=== PATIENT | male | born 1990 | race African-American/Black ===

== ENCOUNTER 2019-03-25 15:26 | Emergency (ER) | payer SELFPAY ==
[2019-03-25 15:58] LABS: ABSOLUTE BASOPHILS # (AUTO) 0.1 10^3/uL (0.0-0.2); ABSOLUTE EOSINOPHILS # (AUTO) 0.1 10^3/uL (0.0-0.6); ABSOLUTE LYMPHOCYTES (AUTO) 2.4 10^3/uL (0.5-4.7); ABSOLUTE NEUT (AUTO) 6.9 10^3/uL (1.7-8.2); BASOPHILS % (AUTO) 0.5 % (0-2); EOSINOPHILS % (AUTO) 1.3 % (0-6); LYMPHOCYTES % (AUTO) 22.5 % (13-45); MEAN CORPUSCULAR HEMOGLOBIN 30.7 pg (27.0-33.4); MEAN CORPUSCULAR VOLUME 90 fl (80-97); MONOCYTES % (AUTO) 9.9 % (3-13); PLATELET COUNT 286 10^3/uL (150-450); RED BLOOD COUNT 4.86 10^6/uL (4.35-5.55); RED CELL DISTRIBUTION WIDTH 13.6 % (11.5-14.0); SEGMENTED NEUTROPHILS % (AUTO) 65.8 % (42-78); TOTAL CELLS COUNTED % (AUTO) 100 %; WHITE BLOOD COUNT 10.5 10^3/uL (4.0-10.5)
[2019-03-25 16:19] LABS: ACETAMINOPHEN < 10 ug/mL (10-30); ALANINE AMINOTRANSFERASE 23 U/L (21-72); ALBUMIN 4.9 g/dL (3.5-5.0); ALCOHOL < 10 mg/dL (NONE DETECTED); ALKALINE PHOSPHATASE 110 U/L (38-126); ANION GAP 11 (5-19); ASPARTATE AMINO TRANSFERASE 26 U/L (17-59); BILIRUBIN,DIRECT 0.4 mg/dL (0.0-0.4); BILIRUBIN,TOTAL 1.3 mg/dL (0.2-1.3); BLOOD UREA NITROGEN 16 mg/dL (7-20); CARBON DIOXIDE 24 mmol/L (22-30); CHLORIDE 107 mmol/L (98-107); GLUCOSE 108 mg/dL (75-110); POTASSIUM 3.8 mmol/L (3.6-5.0); SALICYLATE < 1.0 mg/dL (2.0-20.0); TOTAL PROTEIN 8.5 g/dL (6.3-8.2)
[2019-03-25] MEDS ORDERED: DIPHENHYDRAMINE HCL 50 MG/ML VIAL IM ONE (16:23)
[2019-03-25] MEDS ORDERED: CHLORPROMAZINE HCL INJ 25 MG/1 ML AMPULE IM ONE (16:23)
[2019-03-25] MEDS ORDERED: LORAZEPAM INJ 2 MG/1 ML VIAL IM ONE (16:24)
[2019-03-25] MEDS: CHLORPROMAZINE HCL 50 MG TABLET PO SCH (16:48)
--- NOTE | 2019-03-25 17:21 | PSYCHOLOGICAL NOTE ---
Psych Note - Psych Note Date seen by psych provider: 03/25/19 Time seen by psych provider: 15:35 Psych Note: Medication recommendations per [facility]'s contracted psychiatrist Dr. Austin COSTELLO are as follows Thorazine 50 mg every 8 hours Cogentin 1 mg twice daily Impression\plan: Patient is recommended for continued IVC. Patient presents with very labile affect with concerns aggressive behaviors. Medication recommendations have been provided. Dr. Dejesus was consulted and care management of this patient; attending physicians in agreement with recommendations and disposition.
[2019-03-25] MEDS: BENZTROPINE MESYLATE 1 MG TABLET PO SCH (18:43)
--- NOTE | 2019-03-25 19:35 | EKG REPORT ---
SEVERITY:- NORMAL ECG - SINUS RHYTHM : Confirmed by: Iris Suarez MD 25-Mar-2019 19:34:35
--- NOTE | 2019-03-25 20:31 | ER Document Report ---
ED Psych Disorder / Suicide - General TRAVEL OUTSIDE OF THE [place] IN LAST 30 DAYS: No <CORINA VERGARA - Last Filed: 03/25/19 20:26> <KAILASH PAREDES - Last Filed: 03/30/19 08:34> <PASCUALBRYN - Last Filed: 03/30/19 15:48> - General Chief Complaint: Psych Problem Stated Complaint: PSYCH EVAL Time Seen by Provider: 03/25/19 16:22 Primary Care Provider: [facility] [Outside] - Follow up as needed Notes: Patient was brought in by law enforcement with IVC papers because the patient is threatening to kill others including law enforcement and government officials. 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 History of indecent exposures (CORINA VERGARA) - Related Data Allergies/Adverse Reactions: No Known Allergies Allergy (Verified 03/29/19 21:34) Past Medical History - Social History Smoking Status: Unknown if Ever Smoked Family History: Reviewed & Not Pertinent - Unable to review with patient, but not felt to be significant Patient has suicidal ideation: No - Patient denies Patient has homicidal ideation: Yes - Per petition, patient denies Psychiatric Medical History: Reports: Hx Bipolar Disorder <CORINA VERGARA - Last Filed: 03/25/19 20:26> Review of Systems - Review of Systems -: Yes ROS unobtainable due to patient's medical condition - Uncooperative and unreliable information provided. <CORINA VERGARA - Last Filed: 03/25/19 20:26> Physical Exam - Vital signs Interpretation: Normal <CORINA VERGARA - Last Filed: 03/25/19 20:26> - Vital signs Vitals: Temp Pulse BP Pulse Ox 98.3 F 116 H 113/71 99 03/25/19 15:37 03/25/19 15:37 03/25/19 15:37 03/25/19 15:37 Notes: Vital signs are all normal. PHYSICAL EXAMINATION: GENERAL: Well-appearing, no acute distress. HEAD: Atraumatic, normocephalic. NECK: Normal range of motion, supple. LUNGS: Breath sounds clear and equal bilaterally. HEART: Regular rate and rhythm without murmurs heard. ABDOMEN: Soft, nontender. No guarding or rebound or masses felt. Neuro: Does not answer very many questions. History obtained primarily from the IVC paperwork. (CORINA VERGARA) Course - Laboratory Result Diagrams: 03/25/19 15:45 03/25/19 15:45 - EKG Interpretation by Me EKG shows normal: Sinus rhythm Rate: Normal Rhythm: NSR <CORINA VERGARA - Last Filed: 03/25/19 20:26> - Laboratory Result Diagrams: 03/25/19 15:45 03/25/19 15:45 <KAILASH PAREDES - Last Filed: 03/30/19 08:34> - Laboratory Result Diagrams: 03/25/19 15:45 03/25/19 15:45 <BRYN PASCUAL - Last Filed: 03/30/19 15:48> - Re-evaluation Re-evalutation: 03/25/19 20:30 Patient has been seen by mental health and sedation medications have been ordered. (CORINA VERGARA) - Vital Signs Vital signs: Temp Pulse Resp BP Pulse Ox 97.7 F 74 18 133/62 H 100 03/30/19 12:00 03/30/19 12:00 03/30/19 12:00 03/30/19 12:00 03/30/19 12:00 - Laboratory Laboratory results interpreted by me: 03/25/19 03/26/19 15:45 05:30 Total Protein 8.5 H Urine Protein 30 H Urine Ketones TRACE H Urine Bilirubin SMALL H Urine Urobilinogen 4.0 H Urine Ascorbic Acid 40 H Salicylates < 1.0 L Acetaminophen < 10 L - EKG Interpretation by Me Additional EKG results interpreted by me: 03/25/19 20:31 EKG is normal. (CORINA VERGARA) Discharge <CORINA VERGARA - Last Filed: 03/25/19 20:26> <KAILASH PAREDES - Last Filed: 03/30/19 08:34> <BRYN PASCUAL - Last Filed: 03/30/19 15:48> - Discharge Clinical Impression: Schizoaffective disorder, bipolar type Clinical Impression: (Ruled Out): Agitated depression Condition: Stable Disposition: HOME, SELF-CARE Additional Instructions: You have been evaluated both medical and behavioral health teams and have been deemed appropriate for discharge. You have recieved a Haldol Decanoate 100mg shot on 03/29/2019; this shot lasts 3-4 weeks. Please provide this information to your outpatient mental health provider. You have been provided medication prescriptions: Zyprexa 5 mg twice daily Depakote 500 mg twice daily Cogentin 1 mg twice daily Please follow up with outpatient mental health in 3-5 days for your continued mental health services; you have been provided a resource list of local providers if you chose to stay in the local area. AT ANY TIME, IF YOUR SYMPTOMS CHANGE SIGNIFICANTLY OR WORSEN OR YOU DEVELOP NEW SYMPTOMS, RETURN TO THE EMERGENCY DEPARTMENT IMMEDIATELY FOR RE-EVALUATION. Referrals: [facility] [Outside] - Follow up as needed
[2019-03-26] MEDS: CHLORPROMAZINE HCL 50 MG TABLET PO SCH ×5 (00:05→21:21)
[2019-03-26] MEDS ORDERED: CHLORPROMAZINE HCL INJ 25 MG/1 ML AMPULE IM ONE (05:07)
[2019-03-26] MEDS ORDERED: DIPHENHYDRAMINE HCL 50 MG/ML VIAL IM ONE (05:07)
[2019-03-26 05:57] LABS: APPEARANCE,URINE SLIGHTLY-CLOUDY; BILIRUBIN,URINE SMALL (NEGATIVE); COLOR,URINE AMBER; GLUCOSE, URINE NEGATIVE (NEGATIVE); KETONES,URINE TRACE mg/dL (NEGATIVE); LEUKOCYTE ESTERASE,URINE NEGATIVE (NEGATIVE); NITRITE,URINE NEGATIVE (NEGATIVE); PROTEIN,URINE 30 mg/dL (NEGATIVE)
[2019-03-26 06:15] LABS: URINE AMPHETAMINES SCREEN NEGATIVE; URINE BARBITURATES SCREEN NEGATIVE; URINE BENZODIAZEPINES SCREEN NEGATIVE; URINE COCAINE SCREEN NEGATIVE; URINE MARIJUANA (THC) SCREEN NEGATIVE; URINE METHADONE SCREEN NEGATIVE; URINE PHENCYCLIDINE SCREEN NEGATIVE
--- NOTE | 2019-03-26 09:35 | ER Document Report ---
Doctor's Note Notes: 03/26/19 09:34 Laboratory 03/25/19 03/25/19 03/26/19 15:45 15:45 05:30 WBC 10.5 RBC 4.86 Hgb 15.0 Hct 44.0 MCV 90 MCH 30.7 MCHC 34.0 RDW 13.6 Plt Count 286 Seg Neutrophils % 65.8 Lymphocytes % 22.5 Monocytes % 9.9 Eosinophils % 1.3 Basophils % 0.5 Absolute Neutrophils 6.9 Absolute Lymphocytes 2.4 Absolute Monocytes 1.0 Absolute Eosinophils 0.1 Absolute Basophils 0.1 Sodium 142.0 Potassium 3.8 Chloride 107 Carbon Dioxide 24 Anion Gap 11 BUN 16 Creatinine 1.15 Est GFR ( Amer) > 60 Est GFR (Non-Af Amer) > 60 Glucose 108 Calcium 10.0 Total Bilirubin 1.3 Direct Bilirubin 0.4 Neonat Total Bilirubin Not Reportable Neonat Direct Bilirubin Not Reportable Neonat Indirect Bili Not Reportable AST 26 ALT 23 Alkaline Phosphatase 110 Total Protein 8.5 H Albumin 4.9 Urine Color Urine Appearance Urine pH Ur Specific [place] Urine Protein Urine Glucose (UA) Urine Ketones Urine Blood Urine Nitrite Urine Bilirubin Urine Urobilinogen Ur Leukocyte Esterase Urine WBC (Auto) Urine RBC (Auto) Urine Mucus (Auto) Urine Ascorbic Acid Salicylates < 1.0 L Urine Opiates Screen NEGATIVE Urine Methadone Screen NEGATIVE Acetaminophen < 10 L Ur Barbiturates Screen NEGATIVE Ur Phencyclidine Scrn NEGATIVE Ur Amphetamines Screen NEGATIVE U Benzodiazepines Scrn NEGATIVE Urine Cocaine Screen NEGATIVE U Marijuana (THC) Screen NEGATIVE Serum Alcohol < 10 03/26/19 05:30 WBC RBC Hgb Hct MCV MCH MCHC RDW Plt Count Seg Neutrophils % Lymphocytes % Monocytes % Eosinophils % Basophils % Absolute Neutrophils Absolute Lymphocytes Absolute Monocytes Absolute Eosinophils Absolute Basophils Sodium Potassium Chloride Carbon Dioxide Anion Gap BUN Creatinine Est GFR ( Amer) Est GFR (Non-Af Amer) Glucose Calcium Total Bilirubin Direct Bilirubin Neonat Total Bilirubin Neonat Direct Bilirubin Neonat Indirect Bili AST ALT Alkaline Phosphatase Total Protein Albumin Urine Color MIGUEL Urine Appearance SLIGHTLY-CLOUDY Urine pH 5.0 Ur Specific [place] 1.040 Urine Protein 30 H Urine Glucose (UA) NEGATIVE Urine Ketones TRACE H Urine Blood NEGATIVE Urine Nitrite NEGATIVE Urine Bilirubin SMALL H Urine Urobilinogen 4.0 H Ur Leukocyte Esterase NEGATIVE Urine WBC (Auto) 3 Urine RBC (Auto) 1 Urine Mucus (Auto) MANY Urine Ascorbic Acid 40 H Salicylates Urine Opiates Screen Urine Methadone Screen Acetaminophen Ur Barbiturates Screen Ur Phencyclidine Scrn Ur Amphetamines Screen U Benzodiazepines Scrn Urine Cocaine Screen U Marijuana (THC) Screen Serum Alcohol As the rounding physician this AM, I assessed the patient's labs, vitals, and records. No concerning findings this morning. Patient denies any acute complaints. Patient is cleared for disposition by psychiatry 03/26/19 17:00 03/26/19 17:01 Medication recommendations per [facility]'s contracted psychiatrist Dr. Austin COSTELLO are as follows Thorazine 50 mg every 8 hours Cogentin 1 mg twice daily Impression\plan: Patient is recommended for continued IVC. Patient continues to present with very labile affect with concerns aggressive behaviors. Medication recommendations have been provided. Dr. Dejesus was consulted and care management of this patient; attending physicians in agreement with recomme ndations and disposition. 03/26/19 17:01 PHYSICAL EXAMINATION: GENERAL: Well-appearing, well-nourished and in no acute distress. HEAD: Atraumatic, normocephalic. EYES: Pupils equal round extraocular movements intact, conjunctiva are normal. ENT: Nares patent NECK: Normal range of motion LUNGS: No respiratory distress Musculoskeletal: Normal range of motion NEUROLOGICAL: Normal speech, normal gait. PSYCH: Normal mood, normal affect. SKIN: Warm, Dry, normal turgor, no rashes or lesions noted.
[2019-03-26] MEDS: BENZTROPINE MESYLATE 1 MG TABLET PO SCH (15:20)
--- NOTE | 2019-03-26 16:15 | PSYCHOLOGICAL NOTE ---
Psych Note - Psych Note Date seen by psych provider: 03/26/19 Time seen by psych provider: 08:00 - 0815 Psych Note: Reason for Consult: IVC Patient was brought in by law enforcement with IVC papers because the patient is threatening to kill others including law enforcement and government officials. 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 History of indecent exposure and communicating threats. Patient continues to present Manic with liable mood. [facility] staff report the patient has not slept and continues to not follow directions (ie leaving his room, taking 5-6 showers a day, attempting to talk with staff and patients). Patient is noted to engage in conversation; however, demonstrates odd affect with unprovoked aggressive posturing that is not congruent with his conversational tone. Diagnosis: Schizoaffective by History per patient Medication recommendations per [facility]'s contracted psychiatrist Dr. Austin COSTELLO are as follows Thorazine 50 mg every 8 hours Cogentin 1 mg twice daily Impression\plan: Patient is recommended for continued IVC. Patient continues to present with very labile affect with concerns aggressive behaviors. Medication recommendations have been provided. Dr. Dejesus was consulted and care management of this patient; attending physicians in agreement with recommendations and disposition.
[2019-03-26] MEDS ORDERED: HALOPERIDOL LACTATE INJ 5 MG/1 ML VIAL IM ONE (19:19)
[2019-03-27] MEDS: CHLORPROMAZINE HCL 50 MG TABLET PO SCH ×2 (03:06→09:40)
[2019-03-27] MEDS ORDERED: LORAZEPAM INJ 2 MG/1 ML VIAL IM ONE (03:50)
--- NOTE | 2019-03-27 09:23 | ER Document Report ---
Doctor's Note Notes: 03/27/19 09:23 28-year-old male with homicidal ideations. Patient has been placed on medications. Awaiting psychiatric transport/repeat assessment. Patient is calm and cooperative. Labs and vital signs as recorded.
[2019-03-27] MEDS: BENZTROPINE MESYLATE 1 MG TABLET PO SCH ×2 (09:41→17:46)
[2019-03-27] MEDS: OLANZAPINE INJ/PF 10 MG SDV IM SCH ×2 (13:49→17:45)
--- NOTE | 2019-03-27 16:23 | PSYCHOLOGICAL NOTE ---
Psych Note - Psych Note Date seen by psych provider: 03/27/19 Time seen by psych provider: 08:00 Psych Note: Reason for Consult: IVC Patient was brought in by law enforcement with IVC papers because the patient is threatening to kill others including law enforcement and government officials. 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 History of indecent exposure and communicating threats. Patient continues to present Manic with liable mood. Little improvement in affect; however, patient is no longer demonstrating pressured speech. Diagnosis: Schizoaffective by History per patient Updated Medication recommendations per [facility]'s contracted psychiatrist Dr. Austin COSTELLO are as follows Please add Zyprexa 5mg twice daily Please change Thorazine 50 mg to every 6 hours as needed continue Cogentin 1 mg twice daily Impression\plan: Patient is recommended for continued IVC. Patient continues to present with very labile affect. He is unable to control his impulses and needs consent redirection. Updated Medication recommendations have been provided. Dr. Dejesus was consulted and care management of this patient; attending physicians in agreement with recommendations and disposition.
[2019-03-28] MEDS: CHLORPROMAZINE HCL INJ 25 MG/1 ML AMPULE IM PRN ×2 (00:21→16:43)
--- NOTE | 2019-03-28 09:55 | PSYCHOLOGICAL NOTE ---
Psych Note - Psych Note Date seen by psych provider: 03/28/19 Psych Note: Presenting Problem: LE involvement after patient was making [place] threats to LE, Government officials and businesses. He reported a Hx of Schizoaffective, Bipolar and Nancy. Medications were Seroquel, Zyprexa, GBP, Activist. He admitted he stopped taking his medications and has been hospitalized many times in [place]. He stated he came to [place] for work, had been staying at local hotels/motels and most recently the local homeless ch[facility]. He talked about being arrested or LE being involved with him on numerous occasions. He stated he has court in July. Attending nurse stated he talks better today than he has the past 2 days. Mother, Jessa Palumbo ([phone]) called to the ED after reaching out to local LE since she had not heard from him in 3 days, they (mother and father) reached out to help, he always wants to do things on his own, parent involvement or knowledge of them trying to help has been a trigger for him in the past, they did help fix his car and he was supposed to return to [place]. She stated they reside in [place], he came to [place] for work, he did not bring his medication (Depakote 1000MG BID, Haldol Deconoate 100MG monthly), the job fell through , he broke up with his girlfriend and [facility]. She reported diagnoses of Schizophrenia, Bipolar and Psychotic. She stated he is often noncompliant with medication, Depakote was not very helpful, but when he needs stabilization Zyprexa and the Haldol shot have worked best. She stated his last hospitalization was 6-7 months ago. She stated Friday he called her in the [place] of the day when he knew she'd be at work and kept saying he was okay which was a sign to her he was not and then she spoke to him and "he was not himself." Diagnosis: Schizoaffective by History per patient Impression/Plan: Recommendation to maintain IVC. Attending nurse noted today was the best day in terms of him talking/having dialogue conversation so far. Both patient and other noted Schizophrenia and Bipolar diagnoses. Mother noted patient left [place] for work in [place] and did not bring his medication. Mother stated patient is often noncompliant with medications. Consulted with Dr. Dejesus regarding the management and care of patient. ED Physician in agreement with recommendations.
[2019-03-28] MEDS: BENZTROPINE MESYLATE 1 MG TABLET PO SCH ×2 (10:31→18:17)
[2019-03-28] MEDS: OLANZAPINE INJ/PF 10 MG SDV IM SCH ×2 (10:31→18:17)
--- NOTE | 2019-03-28 12:03 | ER Document Report ---
Entered by DEVON LAZO SCRIBE 03/28/19 1027 Acting as scribe for:JG SHELL DO Doctor's Note Notes: 03/28/19 10:05 Medical rounds: Patient presented to the emergency department via law enforcement on IVC papers due to [place]. Patient is using a towel to sweep the floor upon my arrival into the room and states "I wanted to make it clean for you ladies". He states he wants to see the IVC paperwork and inpatient and outpatient resources. He states he has not been angry, only agitated. He understands plan of having to be without restraints and IV medications for 24 hours before discussing discharge from the hospital GENERAL: Alert. Standing in room, somewhat confrontational, appears distrustful. No acute distress. HEAD: Normocephalic, atraumatic. EYES: Pupils equal, round, and reactive to light. Extraocular movements intact. ENT: Oral mucosa moist, tongue midline. NECK: Full range of motion. Supple. Trachea midline. LUNGS: No respiratory distress. EXTREMITIES: Moves all 4 extremities spontaneously. NEUROLOGICAL: Alert and oriented x3. Normal speech. PSYCH: Standing in room, somewhat confrontational, appears distrustful. Able to be talked down and becomes more cooperative. Manipulative in behaviour by giving frequent compliments regarding their appearance to female staff in the room. SKIN: Warm, dry. 03/28/19 16:59 Patient has become more confrontational, constantly trying to leave his room and making the staff feel endangered. Patient will be placed back in restraints. I personally performed the services described in the documentation, reviewed and edited the documentation which was dictated to the scribe in my presence, and it accurately records my words and actions.
[2019-03-28] MEDS ORDERED: LORAZEPAM INJ 2 MG/1 ML VIAL IM ONE (22:02)
--- NOTE | 2019-03-28 22:04 | ER Document Report ---
Doctor's Note Notes: 03/28/19 22:03 Despite patient being on high doses of scheduled antipsychotics he is still yelling and screaming at staff. He is restrained. Despite being restrained he is calling the nurses "pinches" he is obviously still having psychotic tendencies and is not well controlled. We will give him 3 mg of Ativan IM. If he becomes sleepy from this we will make sure that he is on a pulse ox. Dictation of this chart was performed using voice recognition software; therefore, there may be some unintended grammatical errors.
--- NOTE | 2019-03-29 07:47 | PSYCHOLOGICAL NOTE ---
Psych Note - Psych Note Date seen by psych provider: 03/29/19 Time seen by psych provider: 15:00 - Chart review at 0715. Mother collateral at 1312. Psych Note: Presenting Problem: LE involvement after patient was making [place] threats to LE, Government officials and businesses. Overnight medical documentation noted patient required constant redirection to stay in his room, went to another patient's room, was telling a patient who was yelling to shut up, was rude to staff, said he was going to leave AMA and required physical restraints. Spoke to mother, Jessa, who called in again today. She stated the month long shot typically takes a couple days to work because patient is usually up 5-6 days without sleep, the shot makes him go to sleep and after a couple days he "gets to his normal self." She identified his insurance is [employer] and [place] [phone] spoke to patient. he was able to have a linear and organized dialogue conversation. He acknowledged he has been in restraints because he is like a caged animal and even stated he doesn't fault anyone they were just doing their job. Diagnosis: Schizoaffective by History per patient Medication recommendations made by the psychiatric medical provider, Dr. Austin MD., includes: Discontinue Thorazine 50MG (10MG) every 6 hours (every 8 hours) as needed Add Haldol Deconoate 100MG every 4 weeks once now for psychosis/agitation Add Depakote 500MG twice a day for mood stabilization Continue Zyprexa 5MG twice a day for psychosis/mood stabilization/impulse control Continue Cogentin 1MG twice a day to curb tremor side effects often associated with antipsychotic medications Impression/Plan: Recommendation to maintain IVC.
[2019-03-29] MEDS ORDERED: HALOPERIDOL DECANOATE INJ 100 MG/1 ML VIAL IM ONE (09:28)
--- NOTE | 2019-03-29 09:33 | ER Document Report ---
Doctor's Note Notes: 03/29/19 09:31 Patient seen and examined. Notified by nursing that he required restraints again overnight. He was yelling out, making homicidal threats. Patient is still not well controlled. Placement is become difficult as he is requiring restraints frequently. According to mother, he had tolerated Haldol IM in the p ast. The patient himself states that he is afraid of medications because of "side effects." He states he will not be "probed with anything." Physical exam limited as patient is slightly aggressive at this time. He has restraints in place, one arm free for eating. He has an agitated affect. Plan will be to add Haldol Decanoate and Depakote as patient's medication regimen. We are hopeful to treat his psychosis in a manner that will allow him to go 24 hours without restraints, IVC will be continued.
[2019-03-29] MEDS: OLANZAPINE INJ/PF 10 MG SDV IM SCH ×2 (09:48→17:51)
[2019-03-29] MEDS: DIVALPROEX SODIUM 250 MG TABLET.DR PO SCH ×2 (09:48→17:50)
[2019-03-29] MEDS: BENZTROPINE MESYLATE 1 MG TABLET PO SCH ×2 (09:49→17:50)
[2019-03-30] MEDS: DIVALPROEX SODIUM 250 MG TABLET.DR PO SCH (09:26)
[2019-03-30] MEDS: BENZTROPINE MESYLATE 1 MG TABLET PO SCH (09:26)
[2019-03-30] MEDS: OLANZAPINE INJ/PF 10 MG SDV IM SCH (09:30)
--- NOTE | 2019-03-30 09:39 | ER Document Report ---
Doctor's Note Notes: 03/30/19 09:39 Patient presented to the emergency department via law enforcement on IVC papers due to [place]. Patient is using a towel to sweep the floor upon my arrival into the room and states "I wanted to make it clean for you ladies". He states he wants to see the IVC paperwork and inpatient and outpatient resources. He states he has not been angry, only agitated. He understands plan of having to be without restraints and IV medications for 24 hours before discussing discharge from the hospital As the rounding physician this AM, I assessed the patient's labs, vitals, and records. No concerning findings this morning. Patient denies any acute complaints. Patient is cleared for disposition by [facility]. PHYSICAL EXAMINATION: GENERAL: Well-appearing, well-nourished and in no acute distress. HEAD: Atraumatic, normocephalic. EYES: Pupils equal round extraocular movements intact, conjunctiva are normal. ENT: Nares patent NECK: Normal range of motion LUNGS: No respiratory distress Musculoskeletal: Normal range of motion NEUROLOGICAL: Normal speech, normal gait. PSYCH: Normal mood, normal affect. SKIN: Warm, Dry, normal turgor, no rashes or lesions noted.
[2019-03-30 13:31] VITALS: BP 133/62
--- NOTE | 2019-04-02 11:26 | PSYCHOLOGICAL NOTE ---
Psych Note - Psych Note Date seen by psych provider: 03/30/16 Time seen by psych provider: 07:55 Psych Note: Reason for Consult: IVC Patient was brought in by law enforcement with IVC papers because the patient is threatening to kill others including law enforcement and government officials. 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 History of indecent exposure and communicating threats. Patient is no longer demonstrating any behaviors indicating matt. He is able to engage in organized linear conversation to discuss plan of care which includes where he plans to stay. Behavior health team contacted the homeless senior living and confirm the patient is unable to return. Behavior health team also spoke with patient's mother who reports that she has towed the patient's car to a shop for the insurance gestures to process claim and make repairs. Patient was able to develop his own plan of where he will be going upon discharge and confirms he will continue taking medications. Patient identifies coming to the local area for a job which did not go through and ended up breaking up with his girlfriend. Diagnosis: Schizoaffective by History per patient Medication recommendations made by the psychiatric medical provider, Dr. Austin MD., includes: Continue Depakote 500MG twice a day for mood stabilization Continue Zyprexa 5MG twice a day for psychosis/mood stabilization/impulse control Continue Cogentin 1MG twice a day to curb tremor side effects often associated with antipsychotic medications Impression\plan: Patient is recommended for rescind of IVC and is cleared from acute psychiatric services. Patient is no longer demonstrating behaviors of matt. He denies thoughts of wanting to harm himself or others. No delusions are noted behaviors congruent with intact reality based presentation i.e. organized linear thought process. Patient was able to develop plan of care and confirms following up with outpatient mental health services for both th erapeutic and medication management. Patient was provided local resource list of area providers including mobile crisis contact information. Clinician notes patient's mother was very concerned that the patient had no where to stay since he is unable to return to the local senior living and his car is currently in the shop for repairs. Patient was able to develop his own economic resources for senior living and food and contacted his mother to discuss his plan. Dr. Dejesus was consulted and care management of this patient; attending physicians in agreement with recommendations and disposition.
== END 2019-03-30 16:16 | disposition home or self-care (01) ==
LOC: ER 15:26
DX: F25.0 Schizoaffective disorder, bipolar type (principal)
CPT/HCPCS: 93005; 99285; 96372; 36415; 80307 ×4; 85025; 80053; 81001; 93010; J3230 ×3; J3490 ×2; J1631; J1200 ×2; J1630; J2060 ×3

== ENCOUNTER 2019-03-31 15:55 | Emergency (ER) | payer OTHER ==
[2019-03-31] MEDS ORDERED: IBUPROFEN 800 MG TABLET PO ONE (19:29)
--- NOTE | 2019-03-31 19:55 | RADIOLOGY REPORT (SQ) ---
EXAM DESCRIPTION: ANKLE LEFT COMPLETE COMPLETED DATE/TIME: 03/31/2019 7:47 pm REASON FOR STUDY: injury pain COMPARISON: None. NUMBER OF VIEWS: Three views. TECHNIQUE: AP, lateral, and oblique radiographic images acquired of the left ankle. LIMITATIONS: None. FINDINGS: MINERALIZATION: Normal. BONES: No acute fracture or dislocation. No worrisome bone lesions. JOINTS: No effusions. SOFT TISSUES: No soft tissue swelling. No foreign body. OTHER: No other significant finding. IMPRESSION: NEGATIVE STUDY OF THE LEFT ANKLE. NO RADIOGRAPHIC EVIDENCE OF ACUTE INJURY. TECHNICAL DOCUMENTATION: JOB ID: [id number] [employer]- All Rights Reserved Reading location - IP/workstation name: [email or web address]
--- NOTE | 2019-03-31 19:55 | RADIOLOGY REPORT (SQ) ---
EXAM DESCRIPTION: SHOULDER LEFT 2 OR MORE VIEWS COMPLETED DATE/TIME: 03/31/2019 7:47 pm REASON FOR STUDY: injury pain COMPARISON: None. NUMBER OF VIEWS: Three views. TECHNIQUE: Internal rotation, external rotation, and Y view images acquired of the left shoulder. LIMITATIONS: None. FINDINGS: MINERALIZATION: Normal. BONES: No acute fracture. No worrisome bone lesions. JOINTS: No dislocation. VISUALIZED LUNGS AND RIBS: No pneumothorax. No rib fracture. SOFT TISSUES: No radiopaque foreign body. OTHER: No other significant finding. IMPRESSION: NEGATIVE STUDY OF THE LEFT SHOULDER. NO RADIOGRAPHIC EVIDENCE OF ACUTE INJURY. TECHNICAL DOCUMENTATION: JOB ID: [id number] [employer]- All Rights Reserved Reading location - IP/workstation name: [email or web address]
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
--- NOTE | 2019-03-31 19:55 | RADIOLOGY REPORT (SQ) ---
EXAM DESCRIPTION: FOOT LEFT COMPLETE COMPLETED DATE/TIME: 03/31/2019 7:47 pm REASON FOR STUDY: injury pain COMPARISON: None. NUMBER OF VIEWS: Three views. TECHNIQUE: AP, lateral and oblique radiographic images acquired of the left foot. LIMITATIONS: None. FINDINGS: MINERALIZATION: Normal. BONES: No acute fracture or dislocation. No worrisome bone lesions. JOINTS: No effusions. SOFT TISSUES: No soft tissue swelling. No foreign body. OTHER: No other significant finding. IMPRESSION: NEGATIVE STUDY OF THE LEFT FOOT. NO RADIOGRAPHIC EVIDENCE OF ACUTE INJURY. TECHNICAL DOCUMENTATION: JOB ID: [id number] [employer]- All Rights Reserved Reading location - IP/workstation name: [email or web address]
[2019-03-31 20:14] VITALS: BP 167/84
== END 2019-03-31 20:12 | disposition home or self-care (01) ==
LOC: ER 15:55
DX: M25.512 Pain in left shoulder (principal); M79.672 Pain in left foot; M25.572 Pain in left ankle and joints of left foot; F17.210 Nicotine dependence, cigarettes, uncomplicated
CPT/HCPCS: 99283; 99406

== ENCOUNTER 2019-04-07 08:47 | Emergency (ER) | payer SELFPAY ==
--- NOTE | 2019-04-07 09:41 | ER Document Report ---
Addendum entered and electronically signed by KAILASH PAREDES LCSWA 04/08/19 09:24: Discharge - Discharge Clinical Impression: Suicidal ideation Condition: Stable Disposition: HOME, SELF-CARE Additional Instructions: You have been evaluated by both medical and mental health teams and have been deemed appropriate for discharge. You have been restarted on your medications and have received prescriptions; please take as directed. Depakote 500 mg twice daily Zyprexa 5 mg twice daily Cogentin 1 mg daily Please follow up with outpatient mental health services for your continued services, you have been provided a local resource list of area providers including mobile crisis contact information. DEPRESSION: Your evaluation reveals that you have mental depression. While symptoms may be vague, they often include disturbance of sleep, fatigue, loss of appetite, and general loss of interest in life. While depression may be a side effect of drugs, or a reaction to a major change in your life, many cases have no known cause. If depression is acute, and related to a major loss in your life, you can expect it to clear completely with time. If you have been depressed a long time, are prone to repeated bouts of depression or low mood, or have been thinking of suicide, get help. Depression can be treated with anti-depressant medication and counselling. Long-term depression will often take a few weeks to clear, even with appropriate medication. Follow-up care is important. SUICIDAL IDEATION: Suicidal ideation is a common medical term for thoughts about suicide, wh ich may be as detailed as a formulated plan, without the suicidal act itself. Although most people who undergo suicidal ideation do not commit suicide, some go on to make suicide attempts. The range of suicidal ideation varies greatly from fleeting to detailed planning, role playing, and unsuccessful attempts. While thoughts about suicide are common, most people do not carry out serious actions to commit suicide. Based upon your evaluation and discussion with you, we do not believe you are currently at risk to act upon your thoughts of suicide. You have agreed to return to the Emergency Department, at any time, if you feel inclined to act upon your suicidal thoughts. FOLLOW-UP CARE: If you have been referred to a physician for follow-up care, call the physicians office for an appointment as you were instructed or within the next two days. If you experience worsening or a significant change in your symptoms, notify the physician immediately or return to the Emergency Department at any time for re-evaluation. Referrals: [facility] [Outside] - Follow up as needed [facility] [Outside] - Follow up in 3-5 days Original Note: ED Psych Disorder / Suicide - General Chief Complaint: Suicidal Ideation Stated Complaint: PSYCH EVAL/SUICIDAL IDEATION Time Seen by Provider: 04/07/19 09:11 TRAVEL OUTSIDE OF THE [place] IN LAST 30 DAYS: No - HPI Notes: Patient is a 28-year-old male that presents to the emergency department for chief complaint of suicidal ideation. Patient states that "an event happened a week ago" and since then he has felt suicidal. He reports thinking about riding his bicycle into oncoming traffic. He denies any attempt at self-harm. He states he has had suicidal thoughts in the past. He reports history of schizoaffective and bipolar disorder. He states he is compliant with Depakote and Zyprexa. He denies any homicidal ideations. He denies any drug ingestions. He denies chest pain, shortness of breath, nausea/vomiting, fever, recent illness and abdominal pain. Patient does state he is living on the streets and is requesting a shower Past Medical History: Schizoaffective, bipolar Past Surgical History: Negative Social History: Denies drugs alcohol and tobacco use Family History: Reviewed and noncontributory for presenting illness Allergies: Reviewed, see documented allergy list. REVIEW OF SYSTEMS: CONSTITUTIONAL : No fever No chills No diaphoresis No recent illness EENT: No vision changes No congestion No sore throat CARDIOVASCULAR: No chest pain No palpitations RESPIRATORY: No shortness of breath No cough No difficulty breathing GASTROINTESTINAL: No abdominal pain No nausea No vomiting No diarrhea GENITOURINARY: No dysuria No hematuria No difficulty urinating MUSCULOSKELETAL: No back pain No leg pain No arm pain SKIN: No rashes No lesions LYMPHATIC: No swollen, enlarged glands. NEUROLOGICAL: No lightheadedness No headache No weakness No paresthesias PSYCHIATRIC: No anxiety Suicidal ideation depression PHYSICAL EXAMINATION: Vital signs reviewed, nursing noted reviewed. GENERAL: Well-appearing, well-nourished and in no acute distress. HEAD: Atraumatic, normocephalic. EYES: Eyes appear normal, extraocular movements intact, sclera anicteric, conjunctiva are normal. ENT: nares patent, oropharynx clear without exudates. Moist mucous membranes. NECK: Normal range of motion, supple without lymphadenopathy LUNGS: Breath sounds clear to auscultation bilaterally and equal. No wheezes rales or rhonchi. HEART: Regular rate and rhythm without murmurs ABDOMEN: Soft, nontender, normoactive bowel sounds. No rebound, guarding, or rigidity. No masses appreciated. EXTREMITIES: Nontender, good range of motion, no pitting or edema. NEUROLOGICAL: No focal neurological deficits. Moves all extremities spontaneously Motor and sensory grossly intact on exam. PSYCH: Depressed mood, flat affect. Suicidal SKIN: Warm, Dry, normal turgor, no rashes or lesions noted on exposed skin - Related Data Allergies/Adverse Reactions: No Known Allergies Allergy (Verified 04/07/19 09:45) Past Medical History - Social History Smoking Status: Never Smoker Family History: Reviewed & Not Pertinent - Unable to review with patient, but not felt to be significant Renal/ Medical History: Denies: Hx Peritoneal Dialysis Psychiatric Medical History: Reports: Hx Bipolar Disorder, Hx Schizophrenia - achizo-affective disorder Physical Exam - Vital signs Vitals: Temp Pulse Resp BP 98 F 71 14 137/65 H 04/07/19 08:59 04/07/19 08:59 04/07/19 08:59 04/07/19 08:59 Course - Re-evaluation Re-evalutation: 04/07/19 09:40 Vitals reviewed. Nursing notes reviewed. Patient has a very flat affect and is expressing suicidal ideation with plan. Lab work has been ordered for medical clearance. He currently has no medical complaints. He denies attempted self- harm. 04/07/19 11:30 patient has an undetectable Depakote level suggesting he is not taking medication as directed. The remainder of his work-up is unremarkable. His EKG shows no acute ischemia. Patient is medically cleared for further psychiatric evaluation of his suicidal ideations. Laboratory 04/07/19 04/07/19 04/07/19 10:30 10:30 10:30 WBC 5.7 RBC 4.49 Hgb 13.6 Hct 40.3 MCV 90 MCH 30.4 MCHC 33.8 RDW 13.7 Plt Count 256 Seg Neutrophils % 56.0 Lymphocytes % 25.7 Monocytes % 11.8 Eosinophils % 6.0 Basophils % 0.5 Absolute Neutrophils 3.2 Absolute Lymphocytes 1.5 Absolute Monocytes 0.7 Absolute Eosinophils 0.3 Absolute Basophils 0.0 Sodium 142.0 Potassium 4.1 Chloride 107 Carbon Dioxide 30 Anion Gap 5 BUN 8 Creatinine 0.87 Est GFR ( Amer) > 60 Est GFR (Non-Af Amer) > 60 Glucose 101 Calcium 9.1 Total Bilirubin 0.2 Direct Bilirubin 0.2 Neonat Total Bilirubin Not Reportable Neonat Direct Bilirubin Not Reportable Neonat Indirect Bili Not Reportable AST 25 ALT 29 Alkaline Phosphatase 78 Total Protein 6.6 Albumin 3.6 Urine Color YELLOW Urine Appearance CLEAR Urine pH 6.0 Ur Specific [place] 1.026 Urine Protein NEGATIVE Urine Glucose (UA) NEGATIVE Urine Ketones TRACE H Urine Blood NEGATIVE Urine Nitrite NEGATIVE Urine Bilirubin NEGATIVE Urine Urobilinogen NEGATIVE Ur Leukocyte Esterase NEGATIVE Urine WBC (Auto) 1 Urine Mucus (Auto) OCC Urine Ascorbic Acid 40 H Salicylates < 1.0 L Urine Opiates Screen Urine Methadone Screen Acetaminophen < 10 L Ur Barbiturates Screen Valproic Acid < 10.0 L Ur Phencyclidine Scrn Ur Amphetamines Screen U Benzodiazepines Scrn Urine Cocaine Screen U Marijuana (THC) Screen Serum Alcohol < 10 04/07/19 10:30 WBC RBC Hgb Hct MCV MCH MCHC RDW Plt Count Seg Neutrophils % Lymphocytes % Monocytes % Eosinophils % Basophils % Absolute Neutrophils Absolute Lymphocytes Absolute Monocytes Absolute Eosinophils Absolute Basophils Sodium Potassium Chloride Carbon Dioxide Anion Gap BUN Creatinine Est GFR ( Amer) Est GFR (Non-Af Amer) Glucose Calcium Total Bilirubin Direct Bilirubin Neonat Total Bilirubin Neonat Direct Bilirubin Neonat Indirect Bili AST ALT Alkaline Phosphatase Total Protein Albumin Urine Color Urine Appearance Urine pH Ur Specific [place] Urine Protein Urine Glucose (UA) Urine Ketones Urine Blood Urine Nitrite Urine Bilirubin Urine Urobilinogen Ur Leukocyte Esterase Urine WBC (Auto) Urine Mucus (Auto) Urine Ascorbic Acid Salicylates Urine Opiates Screen NEGATIVE Urine Methadone Screen NEGATIVE Acetaminophen Ur Barbiturates Screen NEGATIVE Valproic Acid Ur Phencyclidine Scrn NEGATIVE Ur Amphetamines Screen NEGATIVE U Benzodiazepines Scrn NEGATIVE Urine Cocaine Screen NEGATIVE U Marijuana (THC) Screen NEGATIVE Serum Alcohol - Vital Signs Vital signs: Temp Pulse Resp BP Pulse Ox 98 F 71 14 137/65 H 04/07/19 08:59 04/07/19 08:59 04/07/19 08:59 04/07/19 08:59 - Laboratory Result Diagrams: 04/07/19 10:30 04/07/19 10:30 Laboratory results interpreted by me: 04/07/19 04/07/19 10:30 10:30 Urine Ketones TRACE H Urine Ascorbic Acid 40 H Salicylates < 1.0 L Acetaminophen < 10 L Valproic Acid < 10.0 L - EKG Interpretation by Me Additional EKG results interpreted by me: 04/07/19 11:30 Interpreted by myself [id number]: Sinus bradycardia, rate 53, normal axis, no ectopy, no STEMI, J-point elevation anterior septal leads Discharge - Discharge Clinical Impression: Suicidal ideation Condition: Stable Disposition: PSYCH HOSP/UNIT
[2019-04-07 10:49] LABS: ABSOLUTE EOSINOPHILS # (AUTO) 0.3 10^3/uL (0.0-0.6); ABSOLUTE LYMPHOCYTES (AUTO) 1.5 10^3/uL (0.5-4.7); ABSOLUTE MONOCYTES (AUTO) 0.7 10^3/uL (0.1-1.4); ABSOLUTE NEUT (AUTO) 3.2 10^3/uL (1.7-8.2); BASOPHILS % (AUTO) 0.5 % (0-2); HEMATOCRIT 40.3 % (37.9-51.0); HEMOGLOBIN 13.6 g/dL (13.5-17.0); LYMPHOCYTES % (AUTO) 25.7 % (13-45); MEAN CORPUSCULAR HEMOGLOBIN 30.4 pg (27.0-33.4); MEAN CORPUSCULAR HGB CONC 33.8 g/dL (32.0-36.0); MEAN CORPUSCULAR VOLUME 90 fl (80-97); MONOCYTES % (AUTO) 11.8 % (3-13); PLATELET COUNT 256 10^3/uL (150-450); RED BLOOD COUNT 4.49 10^6/uL (4.35-5.55); RED CELL DISTRIBUTION WIDTH 13.7 % (11.5-14.0); TOTAL CELLS COUNTED % (AUTO) 100 %; WHITE BLOOD COUNT 5.7 10^3/uL (4.0-10.5)
[2019-04-07 10:54] LABS: APPEARANCE,URINE CLEAR; BILIRUBIN,URINE NEGATIVE (NEGATIVE); COLOR,URINE YELLOW; GLUCOSE, URINE NEGATIVE (NEGATIVE); KETONES,URINE TRACE mg/dL (NEGATIVE); LEUKOCYTE ESTERASE,URINE NEGATIVE (NEGATIVE); NITRITE,URINE NEGATIVE (NEGATIVE); PROTEIN,URINE NEGATIVE (NEGATIVE); URINE SPECIFIC GRAVITY 1.026; UROBILINOGEN,URINE NEGATIVE mg/dL (<2.0)
[2019-04-07 11:07] LABS: URINE AMPHETAMINES SCREEN NEGATIVE; URINE BARBITURATES SCREEN NEGATIVE; URINE BENZODIAZEPINES SCREEN NEGATIVE; URINE COCAINE SCREEN NEGATIVE; URINE MARIJUANA (THC) SCREEN NEGATIVE; URINE METHADONE SCREEN NEGATIVE; URINE PHENCYCLIDINE SCREEN NEGATIVE
[2019-04-07 11:13] LABS: ALANINE AMINOTRANSFERASE 29 U/L (21-72); ALBUMIN 3.6 g/dL (3.5-5.0); ALKALINE PHOSPHATASE 78 U/L (38-126); ANION GAP 5 (5-19); ASPARTATE AMINO TRANSFERASE 25 U/L (17-59); BILIRUBIN,DIRECT 0.2 mg/dL (0.0-0.4); BILIRUBIN,TOTAL 0.2 mg/dL (0.2-1.3); BLOOD UREA NITROGEN 8 mg/dL (7-20); CALCIUM 9.1 mg/dL (8.4-10.2); CARBON DIOXIDE 30 mmol/L (22-30); CHLORIDE 107 mmol/L (98-107); GLUCOSE 101 mg/dL (75-110); POTASSIUM 4.1 mmol/L (3.6-5.0); TOTAL PROTEIN 6.6 g/dL (6.3-8.2)
[2019-04-07 11:25] LABS: ACETAMINOPHEN < 10 ug/mL (10-30); ALCOHOL < 10 mg/dL (NONE DETECTED); SALICYLATE < 1.0 mg/dL (2.0-20.0)
[2019-04-07] MEDS ORDERED: DIVALPROEX SODIUM 500 MG TAB.SR.24H PO SCH (14:07)
[2019-04-07] MEDS: BENZTROPINE MESYLATE 1 MG TABLET PO SCH (14:27)
--- NOTE | 2019-04-07 16:11 | PSYCHOLOGICAL NOTE ---
Psych Note - Psych Note Date seen by psych provider: 04/07/19 Time seen by psych provider: 12:35 Psych Note: Reason for Consult: Suicidal ideation Patient is a 28-year-old male that presents to the emergency department for chief complaint of suicidal ideation. Medication recommendations per [facility]'s contracted psychiatrist Dr. Austin COSTELLO are as follows Depakote 500 mg twice daily Zyprexa 5 mg twice daily Cogentin 1 mg daily Impression\plan: Patient is recommended for overnight mental health observation to restart medications. Patient was discharged 8 days ago however it appears that he did not receive his prescriptions. Patient is currently subtherapeutic on his medications and agrees to stay overnight to be restarted with probable discharge in the morning. Patient discloses passive suicidal ideation i.e. no plans means or intent. Patient will be reevaluated. Dr. Dejesus was consulted to care management of this patient; attending physicians in agreement with recommendations and disposition.
--- NOTE | 2019-04-07 17:57 | EKG REPORT ---
SEVERITY:- NORMAL ECG - SINUS RHYTHM ST ELEV, PROBABLE NORMAL EARLY REPOL PATTERN : Confirmed by: Guicho Rodriguez 07-Apr-2019 17:56:33
[2019-04-07] MEDS: OLANZAPINE 5 MG TABLET PO SCH (18:04)
[2019-04-07] MEDS: DIVALPROEX SODIUM 500 MG TAB.SR.24H PO SCH (23:11)
--- NOTE | 2019-04-08 09:33 | PSYCHOLOGICAL NOTE ---
Psych Note - Psych Note Date seen by psych provider: 04/08/19 Time seen by psych provider: 09:05 Psych Note: Reason for Consult: Suicidal ideation Patient is a 28-year-old male that presents to the emergency department for chief complaint of suicidal ideation. Check in with patient: Patient's mood is euthymic with congruent affect. He is very pleasant and polite. He denies continued thoughts if self harm and denies thoughts of wanting to harm others. He reported [facility]. HE fee;s very comfortable with plan of care for discharge and following up with outpatient mental health services. Medication recommendations per [facility]'s contracted psychiatrist Dr. Austin COSTELLO are as follows Depakote 500 mg twice daily Zyprexa 5 mg twice daily Cogentin 1 mg daily Impression\plan: Patient is cleared from acute psychiatric services. Patient presented with passive suicidal ideation ie no plan, means or intent. He denies continue thoughts since restarting on his medications. Patient reports plan to [facility] and following up with outpatient mental health services. Dr. Dejesus was consulted to care management of this patient; attending physicians in agreement with recommendations and disposition.
[2019-04-08] MEDS: BENZTROPINE MESYLATE 1 MG TABLET PO SCH (09:38)
[2019-04-08] MEDS: DIVALPROEX SODIUM 500 MG TAB.SR.24H PO SCH (09:38)
[2019-04-08] MEDS: OLANZAPINE 5 MG TABLET PO SCH (09:38)
--- NOTE | 2019-04-08 09:42 | ER Document Report ---
Doctor's Note Notes: 04/08/19 09:41 Rounds: Chart reviewed and patient interviewed. Patient being evaluated for suicidal ideation. Patient says he does not feel suicidal at this time. I seen this patient previously here and he seems to be very stable at this time. Lab studies were all normal. Vital signs are all essentially normal. Patient appears to be medically stable for transfer or discharge. Juan Jose Montero MD
[2019-04-08 10:13] VITALS: BP 126/70
== END 2019-04-08 10:31 | disposition home or self-care (01) ==
LOC: ER 08:47
DX: R45.851 Suicidal ideations (principal); F25.9 Schizoaffective disorder, unspecified; F31.9 Bipolar disorder, unspecified; Z79.899 Other long term (current) drug therapy
CPT/HCPCS: 36415; 80053; 80164; 80307; 81001; 85025; 93005; 93010; 99285

== ENCOUNTER 2019-04-18 22:23 | Emergency (ER) | payer SELFPAY ==
[2019-04-18 23:11] LABS: ABSOLUTE EOSINOPHILS # (AUTO) 0.6 10^3/uL (0.0-0.6); ABSOLUTE MONOCYTES (AUTO) 0.9 10^3/uL (0.1-1.4); ABSOLUTE NEUT (AUTO) 4.8 10^3/uL (1.7-8.2); BASOPHILS % (AUTO) 0.5 % (0-2); EOSINOPHILS % (AUTO) 6.9 % (0-6); HEMATOCRIT 41.2 % (37.9-51.0); HEMOGLOBIN 14.2 g/dL (13.5-17.0); LYMPHOCYTES % (AUTO) 23.7 % (13-45); MEAN CORPUSCULAR HEMOGLOBIN 30.6 pg (27.0-33.4); MEAN CORPUSCULAR HGB CONC 34.5 g/dL (32.0-36.0); MEAN CORPUSCULAR VOLUME 89 fl (80-97); PLATELET COUNT 255 10^3/uL (150-450); RED BLOOD COUNT 4.63 10^6/uL (4.35-5.55); SEGMENTED NEUTROPHILS % (AUTO) 57.9 % (42-78); TOTAL CELLS COUNTED % (AUTO) 100 %; WHITE BLOOD COUNT 8.3 10^3/uL (4.0-10.5)
[2019-04-18 23:19] LABS: APPEARANCE,URINE CLEAR; BILIRUBIN,URINE SMALL (NEGATIVE); GLUCOSE, URINE NEGATIVE (NEGATIVE); KETONES,URINE TRACE mg/dL (NEGATIVE); LEUKOCYTE ESTERASE,URINE NEGATIVE (NEGATIVE); NITRITE,URINE NEGATIVE (NEGATIVE); PROTEIN,URINE 30 mg/dL (NEGATIVE); URINE SPECIFIC GRAVITY 1.038
[2019-04-18 23:21] LABS: COLOR,URINE DARK YELLOW
[2019-04-18 23:26] LABS: ALANINE AMINOTRANSFERASE 30 U/L (21-72); ALBUMIN 4.4 g/dL (3.5-5.0); ALKALINE PHOSPHATASE 96 U/L (38-126); ANION GAP 10 (5-19); ASPARTATE AMINO TRANSFERASE 36 U/L (17-59); BILIRUBIN,DIRECT 0.2 mg/dL (0.0-0.4); BILIRUBIN,TOTAL 0.6 mg/dL (0.2-1.3); BLOOD UREA NITROGEN 16 mg/dL (7-20); CALCIUM 9.6 mg/dL (8.4-10.2); CARBON DIOXIDE 23 mmol/L (22-30); CHLORIDE 109 mmol/L (98-107); GLUCOSE 115 mg/dL (75-110); POTASSIUM 3.9 mmol/L (3.6-5.0); TOTAL PROTEIN 7.8 g/dL (6.3-8.2)
[2019-04-18 23:31] LABS: ACETAMINOPHEN < 10 ug/mL (10-30); ALCOHOL < 10 mg/dL (NONE DETECTED); SALICYLATE < 1.0 mg/dL (2.0-20.0); URINE AMPHETAMINES SCREEN NEGATIVE; URINE BARBITURATES SCREEN NEGATIVE; URINE BENZODIAZEPINES SCREEN NEGATIVE; URINE COCAINE SCREEN NEGATIVE; URINE MARIJUANA (THC) SCREEN NEGATIVE; URINE METHADONE SCREEN NEGATIVE; URINE PHENCYCLIDINE SCREEN NEGATIVE
[2019-04-19] MEDS ORDERED: DIVALPROEX SODIUM 500 MG TAB.SR.24H PO ONE (01:04)
[2019-04-19] MEDS ORDERED: BENZTROPINE MESYLATE 1 MG TABLET PO ONE (01:04)
--- NOTE | 2019-04-19 01:05 | ER Document Report ---
Addendum entered and electronically signed by CORINA VERGARA MD 04/19/19 12:49: Discharge - Discharge Clinical Impression: Suicidal ideation Schizophrenia Qualifiers: Schizophrenia type: unspecified Qualified Code(s): F20.9 - Schizophrenia, unspecified Depression Qualifiers: Depression Type: major depressive disorder Major depression recurrence: re current Active/Remission status: currently active Major depression episode severity: moderate Qualified Code(s): F33.1 - Major depressive disorder, recurrent, moderate Condition: Stable Disposition: HOME, SELF-CARE Additional Instructions: You have been evaluated by both medical and behavioral health providers while in the emergency department. You have been cleared from both acute medical and psychiatric services. You denied current suicidal ideation. You are recommended to get your prescriptions filled, take your medications as prescribed and follow up with local mental health provider while staying in this area for ongoing Schizoaffective treatment. Bipolar Disorder (Bipolar and Schizophrenia symptoms combined are often referred to as Schizoaffective) Bipolar disorder is also called manic-depressive disorder. Depression alterna padmaja with brain hyperactivity called matt. Each phase lasts from several days to a few weeks. We don't know exactly what causes bipolar disorder, but it's treatable. During the "manic phase," you may feel elated and energetic. You may have racing thoughts, rapid speech, increased activity, and grandiose ideas. During this time, you may not realize how poor your judgement is. Inappropriate spending, drug abuse, excessive alcohol use, marriage problems, and irresponsible sexual behavior are common during the manic phase. During the "depressive phase," you might feel depressed, guilty, worthless, fatigued, and unable to concentrate. You might have thoughts of suicide. Good treatments are available for bipolar disorder. Placedo is a classic drug for bipolar disorder, and is still often useful. If the manic phase is very mild, an antidepressant alone can be prescribed. If the manic phase is very severe, an antipsychotic medicine (such as Haldol) may be needed. The treatment must be matched to your symptoms, so it's important to work closely with your psychiatric care provider. Contact your physician, the hospital emergency center, crisis line, or your counsellor if you are losing control or having self-destructive thoughts. Schizophrenia (Bipolar and Schizophrenia symptoms combined are often referred to as Schizoaffective) Schizophrenia is a chemical disorder that affects how the brain functions. The exact cause is unknown, but it tends to run in families. It is NOT caused by emotional trauma. Schizophrenia causes disordered thinking, including unusual beliefs and inability to "process" happenings around the patient. Patients with schizophrenia benefit greatly from medicine. These medicines are called antipsychotics. Never stop the medicine without the doctor's approval. Counselling may help the patient deal with his disease. Schizophrenics require a very ordered environment. Stresses and sudden sudhir nges may bring out symptoms. Drugs and alcohol abuse may become problems. Contact the counsellor or crisis line if there are thoughts of suicide or of harming others, or if you become aware of unusual thoughts or beliefs SUICIDAL IDEATION: Suicidal ideation is a common medical term for thoughts about suicide, which may be as detailed as a formulated plan, without the suicidal act itself. Although most people who undergo suicidal ideation do not commit suicide, some go on to make suicide attempts. The range of suicidal ideation varies greatly from fleeting to detailed planning, role playing, and unsuccessful attempts. While thoughts about suicide are common, most people do not carry out serious actions to commit suicide. Based upon your evaluation and discussion with you, we do not believe you are currently at risk to act upon your thoughts of suicide. You have agreed to return to the Emergency Department, at any time, if you feel inclined to act upon your suicidal thoughts. FOLLOW-UP CARE: You have been administered Zyprexa 5MG which aids with psychosis/mood stabilization/impulse control. You are recommended to get your prescriptions filled (Zyprexa 5MG twice a day, Depakote 500MG twice a day and Cogentin 1MG twice a day) and take as prescribed. You are also recommended to follow up with [facility] (can walk in Friday-Friday 8:00AM-4:30PM) for outpatient services while you remain in this area. You have been provided [facility] and [facility] Mobile Crisis contact information for professional support. If you experience worsening or a significant change in your symptoms, notify the physician immediately, utilize mobile crisis or return to the Emergency Department at any time for re-evaluation. Prescriptions: Benztropine Mesylate [Cogentin 1 mg Tablet] 1 tab PO BID #30 tab Divalproex Sodium [Depakote ER 500 mg Tab.sr] 500 mg PO BID #30 tab.sr.24h Olanzapine [Zyprexa 5 mg Tablet] 5 mg PO BID #30 tablet Referrals: S Crisis Team [Outside] - Follow up as needed [facility] [Outside] - Follow up as needed Addendum entered and electronically signed by JORGE PARHAM LPC 04/19/19 12:37: Discharge - Discharge Clinical Impression: Suicidal ideation Schizophrenia Qualifiers: Schizophrenia type: unspecified Qualified Code(s): F20.9 - Schizophrenia, unspecified Depression Qualifiers: Depression Type: major depressive disorder Major depression recurrence: recurrent Active/Remission status: currently active Major depression episode severity: moderate Qualified Code(s): F33.1 - Major depressive disorder, recurrent, moderate Condition: Stable Disposition: HOME, SELF-CARE Additional Instructions: You have been evaluated by both medical and behavioral health providers while in the emergency department. You have been cleared from both acute medical and psychiatric services. You denied current suicidal ideation. You are recommended to get your prescriptions filled, take your medications as prescribed and follow up with local mental health provider while staying in this area for ongoing Schizoaffective treatment. Bipolar Disorder (Bipolar and Schizophrenia symptoms combined are often referred to as Schizoaffective) Bipolar disorder is also called manic-depressive disorder. Depression alternates with brain hyperactivity called matt. Each phase lasts from several days to a few weeks. We don't know exactly what causes bipolar disorder, but it's treatable. During the "manic phase," you may feel elated and energetic. You may have racing thoughts, rapid speech, increased activity, and grandiose ideas. During this time, you may not realize how poor your judgement is. Inappropriate spending, drug abuse, excessive alcohol use, marriage problems, and irresponsible sexual behavior are common during the manic phase. During the "depressive phase," you might feel depressed, guilty, worthless, fatigued, and unable to concentrate. You might have thoughts of suicide. Good treatments are available for bipolar disorder. Placedo is a classic drug for bipolar disorder, and is still often useful. If the manic phase is very mild, an antidepressant alone can be prescribed. If the manic phase is very severe, an antipsychotic medicine (such as Haldol) may be needed. The treatment must be matched to your symptoms, so it's important to work closely with your psychiatric care provider. Contact your physician, the hospital emergency center, crisis line, or your counsellor if you are losing control or having self-destructive thoughts. Schizophrenia (Bipolar and Schizophrenia symptoms combined are often referred to as Schizoaffective) Schizophrenia is a chemical disorder that affects how the brain functions. The exact cause is unknown, but it tends to run in families. It is NOT caused by emotional trauma. Schizophrenia causes disordered thinking, including unusual beliefs and inability to "process" happenings around the patient. Patients with schizophrenia benefit greatly from medicine. These medicines are called antipsychotics. Never stop the medicine without the doctor's approval. Counselling may help the patient deal with his disease. Schizophrenics require a very ordered environment. Stresses and sudden changes may bring out symptoms. Drugs and alcohol abuse may become problems. Contact the counsellor or crisis line if there are thoughts of suicide or of harming others, or if you become aware of unusual thoughts or beliefs SUICIDAL IDEATION: Suicidal ideation is a common medical term for thoughts about suicide, which may be as detailed as a formulated plan, without the suicidal act itself. Although most people who undergo suicidal ideation do not commit suicide, some go on to make suicide attempts. The range of suicidal ideation varies greatly from fleeting to detailed planning, role playing, and unsuccessful attempts. While thoughts about suicide are common, most people do not carry out serious actions to commit suicide. Based upon your evaluation and discussion with you, we do not believe you are currently at risk to act upon your thoughts of suicide. You have agreed to return to the Emergency Department, at any time, if you feel inclined to act upon your suicidal thoughts. FOLLOW-UP CARE: You have been administered Zyprexa 5MG which aids with psychosis/mood stabilization/impulse control. You are recommended to get your prescriptions filled (Zyprexa 5MG twice a day, Depakote 500MG twice a day and Cogentin 1MG twice a day) and take as prescribed. You are also recommended to follow up with [facility] (can walk in Friday-Friday 8:00AM-4:30PM) for outpatient services while you remain in this area. You have been provided [facility] and [facility] Mobile Crisis contact information for professional support. If you experience worsening or a significant change in your symptoms, notify the physician immediately, utilize mobile crisis or return to the Emergency Department at any time for re-evaluation. Referrals: [facility] Crisis Team [Outside] - Follow up as needed [facility] [Outside] - Follow up as needed Original Note: ED Psych Disorder / Suicide - General Chief Complaint: Psych Problem Stated Complaint: SUICIDAL IDEATION Time Seen by Provider: 04/19/19 00:44 Notes: 28-year-old -[place] male emergency department with suicidal ideation. Patient is quite vague in explaining why he is here. States he was here about 10 days ago. Never got his medication filled but cannot explain why. States he is on Medicaid so he can get his medicines but he did not. When asked if he is homeless he would not reply. Once a shower. States that if he does not get his shower he is leaving. Does state that he is having thoughts of wanting to but he will not tell me his plan. TRAVEL OUTSIDE OF THE [place] IN LAST 30 DAYS: No - HPI Patient complains to provider of: Suicidal ideation Severity: Moderate - Related Data Allergies/Adverse Reactions: No Known Allergies Allergy (Verified 04/18/19 22:43) Past Medical History - General Information source: Patient - Social History Smoking Status: Current Every Day Smoker Cigarette use (# per day): Yes Frequency of alcohol use: None Drug Abuse: None Family History: Reviewed & Not Pertinent - Unable to review with patient, but not felt to be significant Patient has suicidal ideation: Yes Patient has homicidal ideation: No Renal/ Medical History: Denies: Hx Peritoneal Dialysis Psychiatric Medical History: Reports: Hx Bipolar Disorder, Hx Schizophrenia - schizo-affective disorder Review of Systems - Review of Systems Notes: Constitutional: denies: Chills, Diaphoresis, Fever, Malaise, Weakness EENT: denies: Eye discharge, Blurred vision, Tearing, Double vision, Nose congestion, Nose discharge, Throat swelling, Mouth pain Cardiovascular: denies: Palpitations, Heart racing, Orthopnea, Dyspnea, Chest pain Respiratory: denies: Cough, Hurts to breathe, Wheezing, Shortness of breath Gastrointestinal: denies: Abdominal pain, Diarrhea, Nausea, Vomiting, Black stools, bright red blood in stool Genitourinary: denies: Burning, Dysuria, Discharge, Frequency, Flank pain, Hematuria Musculoskeletal: denies: Joint pain, Joint swelling, Muscle pain, Muscle stiffness, back pain Hematologic/Lymphatic: denies: Anemia, Easy bleeding, Easy bruising, Blood clots Neurological/Psychological: denies: Confusion, Dementia, +Depression, -Loss of consciousness, + schizophrenia Skin: No lesions, no masses, no skin breakdown, no abscesses Physical Exam - Vital signs Vitals: Temp Pulse Resp BP Pulse Ox 98.3 F 82 18 149/76 H 96 04/18/19 22:34 04/18/19 22:34 04/18/19 22:34 04/18/19 22:34 04/18/19 22:34 Interpretation: Normal - General General appearance: Appears well, Alert - HEENT Head: Normocephalic, Atraumatic Eyes: Normal Pupils: PERRL - Respiratory Respiratory status: No respiratory distress Chest status: Nontender Breath sounds: Normal Chest palpation: Normal - Cardiovascular Rhythm: Regular Heart sounds: Normal auscultation Murmur: No - Abdominal Inspection: Normal Distension: No distension Bowel sounds: Normal Tenderness: Nontender Organomegaly: No organomegaly - Back Back: Normal, Nontender - Extremities General upper extremity: Normal inspection, Nontender, Normal color, Normal ROM, Normal temperature General lower extremity: Normal inspection, Nontender, Normal color, Normal ROM, Normal temperature, Normal weight bearing. No: Laureano's sign - Neurological Neuro grossly intact: Yes Cognition: Normal Orientation: AAOx4 Rod Coma Scale Eye Opening: Spontaneous [place] Coma Scale Verbal: Oriented [place] Coma Scale Motor: Obeys Commands Rod Coma Scale Total: 15 Speech: Normal Motor strength normal: LUE, RUE, LLE, RLE Sensory: Normal - Psychological Associated symptoms: Normal affect, Aggressive, Depressed - Skin Skin Temperature: Warm Skin Moisture: Dry Skin Color: Normal Course - Re-evaluation Re-evalutation: 04/19/19 01:42 Patient is quite confrontational and argumentative. He does endorse that he is having suicidal thoughts at this time I cannot clear him. I am going to give him the medications for which she was on before. Hopefully this will work throughout the night. Anticipate need for mental health to see him in the morning. 04/19/19 01:43 Laboratory 04/18/19 04/18/19 04/18/19 22:48 22:48 22:48 WBC 8.3 RBC 4.63 Hgb 14.2 Hct 41.2 MCV 89 MCH 30.6 MCHC 34.5 RDW 14.0 Plt Count 255 Seg Neutrophils % 57.9 Lymphocytes % 23.7 Monocytes % 11.0 Eosinophils % 6.9 H Basophils % 0.5 Absolute Neutrophils 4.8 Absolute Lymphocytes 2.0 Absolute Monocytes 0.9 Absolute Eosinophils 0.6 Absolute Basophils 0.0 Sodium Potassium Chloride Carbon Dioxide Anion Gap BUN Creatinine Est GFR ( Amer) Est GFR (Non-Af Amer) Glucose Calcium Total Bilirubin Direct Bilirubin Neonat Total Bilirubin Neonat Direct Bilirubin Neonat Indirect Bili AST ALT Alkaline Phosphatase Total Protein Albumin Urine Color DARK YELLOW Urine Appearance CLEAR Urine pH 5.0 Ur Specific [place] 1.038 Urine Protein 30 H Urine Glucose (UA) NEGATIVE Urine Ketones TRACE H Urine Blood NEGATIVE Urine Nitrite NEGATIVE Urine Bilirubin SMALL H Urine Urobilinogen 2.0 H Ur Leukocyte Esterase NEGATIVE Urine WBC (Auto) 2 Urine RBC (Auto) 1 Squamous Epi Cells Auto <1 Urine Mucus (Auto) MANY Urine Ascorbic Acid 40 H Salicylates Urine Opiates Screen NEGATIVE Urine Methadone Screen NEGATIVE Acetaminophen Ur Barbiturates Screen NEGATIVE Ur Phencyclidine Scrn NEGATIVE Ur Amphetamines Screen NEGATIVE U Benzodiazepines Scrn NEGATIVE Urine Cocaine Screen NEGATIVE U Marijuana (THC) Screen NEGATIVE Serum Alcohol 04/18/19 22:48 WBC RBC Hgb Hct MCV MCH MCHC RDW Plt Count Seg Neutrophils % Lymphocytes % Monocytes % Eosinophils % Basophils % Absolute Neutrophils Absolute Lymphocytes Absolute Monocytes Absolute Eosinophils Absolute Basophils Sodium 142.0 Potassium 3.9 Chloride 109 H Carbon Dioxide 23 Anion Gap 10 BUN 16 Creatinine 0.88 Est GFR ( Amer) > 60 Est GFR (Non-Af Amer) > 60 Glucose 115 H Calcium 9.6 Total Bilirubin 0.6 Direct Bilirubin 0.2 Neonat Total Bilirubin Not Reportable Neonat Direct Bilirubin Not Reportable Neonat Indirect Bili Not Reportable AST 36 ALT 30 Alkaline Phosphatase 96 Total Protein 7.8 Albumin 4.4 Urine Color Urine Appearance Urine pH Ur Specific [place] Urine Protein Urine Glucose (UA) Urine Ketones Urine Blood Urine Nitrite Urine Bilirubin Urine Urobilinogen Ur Leukocyte Esterase Urine WBC (Auto) Urine RBC (Auto) Squamous Epi Cells Auto Urine Mucus (Auto) Urine Ascorbic Acid Salicylates < 1.0 L Urine Opiates Screen Urine Methadone Screen Acetaminophen < 10 L Ur Barbiturates Screen Ur Phencyclidine Scrn Ur Amphetamines Screen U Benzodiazepines Scrn Urine Cocaine Screen U Marijuana (THC) Screen Serum Alcohol < 10 - Vital Signs Vital signs: Temp Pulse Resp BP Pulse Ox 98.3 F 82 18 149/76 H 96 04/18/19 22:34 04/18/19 22:34 04/18/19 22:34 04/18/19 22:34 04/18/19 22:34 - Laboratory Result Diagrams: 04/18/19 22:48 04/18/19 22:48 Laboratory results interpreted by me: 04/18/19 04/18/19 04/18/19 22:48 22:48 22:48 Eosinophils % 6.9 H Chloride 109 H Glucose 115 H Urine Protein 30 H Urine Ketones TRACE H Urine Bilirubin SMALL H Urine Urobilinogen 2.0 H Urine Ascorbic Acid 40 H Salicylates < 1.0 L Acetaminophen < 10 L Valproic Acid 04/18/19 22:48 Eosinophils % Chloride Glucose Urine Protein Urine Ketones Urine Bilirubin Urine Urobilinogen Urine Ascorbic Acid Salicylates Acetaminophen Valproic Acid < 10.0 L Discharge - Discharge Clinical Impression: Schizophrenia Qualifiers: Schizophrenia type: unspecified Qualified Code(s): F20.9 - Schizophrenia, unspecified Depression Qualifiers: Depression Type: major depressive disorder Major depression recurrence: recurrent Active/Remission status: currently active Major depression episode s everity: moderate Qualified Code(s): F33.1 - Major depressive disorder, recurrent, moderate Condition: Good Disposition: HOME, SELF-CARE
[2019-04-19] MEDS ORDERED: OLANZAPINE 5 MG TABLET PO SCH ×2 (01:15→10:00)
[2019-04-19] MEDS ORDERED: OLANZAPINE 5 MG TABLET PO ONE (01:15)
[2019-04-19 09:45] VITALS: BP 138/87
--- NOTE | 2019-04-19 10:03 | ER Document Report ---
Doctor's Note Notes: 04/19/19 10:02 Rounds: Chart reviewed and patient interviewed. Patient with a history of schizophrenia. This is at least the third visit that I am seeing him here in the past 2 weeks. Patient says he has prescriptions for his medicines but did not get them filled. Much calmer than he has been on previous occasions, alt lillie he was very manageable on his most recent visit that I saw him. Cooperative. Somewhat slow to answer questions. Vital signs are all normal. Lab studies were unremarkable. Patient appears to be medically stable for transfer or discharge. Juan Jose Montero MD
[2019-04-19] MEDS ORDERED: OLANZAPINE 5 MG TAB.RAPDIS PO ONE (12:01)
[2019-04-19] MEDS ORDERED: BENZTROPINE MESYLATE 1 MG TABLET PO SCH (12:15)
[2019-04-19] MEDS ORDERED: DIVALPROEX SODIUM 500 MG TAB.SR.24H PO SCH (13:00)
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
--- NOTE | 2019-04-20 19:03 | EKG REPORT ---
SEVERITY:- ABNORMAL ECG - SINUS RHYTHM NONSPECIFIC INTRAVENTRICULAR CONDUCTION DELAY : Confirmed by: Dion Butler MD 20-Apr-2019 19:03:21
== END 2019-04-19 12:55 | disposition home or self-care (01) ==
LOC: ER 22:23
DX: R45.851 Suicidal ideations (principal); F33.1 Major depressive disorder, recurrent, moderate; F20.9 Schizophrenia, unspecified; F17.210 Nicotine dependence, cigarettes, uncomplicated; Z91.14 Patient's other noncompliance with medication regimen
CPT/HCPCS: 93005; 99285; 36415; 80307 ×4; 85025; 80053; 81001; 80164; 93010; J3490

== ENCOUNTER 2019-06-09 20:12 | Emergency (ER) | payer SELFPAY ==
--- NOTE | 2019-06-09 20:47 | ER Document Report ---
ED Medical Screen (RME) - General Chief Complaint: Anxiety Stated Complaint: PYSCH Time Seen by Provider: 06/09/19 20:45 Mode of Arrival: Ambulatory Information source: Patient Notes: 28-year-old male presented to ED for assessment to enable him to go to [place]. He states he is coming in for depression and anxiety. He states he came in once before but he got arrested so was not able to go to [place] for help. He states he has been assessed to be cleared to go to [place] at this time. Patient is alert oriented respirations regular and unlabored speaking in full sentences I have greeted and performed a rapid initial assessment of this patient. A comprehensive ED assessment and evaluation of the patient, analysis of test results and completion of medical decision making process will be conducted by an additional ED providers. TRAVEL OUTSIDE OF THE [place].S[place] IN LAST 30 DAYS: No - Related Data Allergies/Adverse Reactions: No Known Allergies Allergy (Verified 04/18/19 22:43) Past Medical History Renal/ Medical History: Denies: Hx Peritoneal Dialysis Psychiatric Medical History: Reports: Hx Bipolar Disorder, Hx Schizophrenia - schizo-affective disorder Physical Exam - Vital signs Vitals: Temp Pulse Resp BP Pulse Ox 98.0 F 96 16 115/59 L 96 06/09/19 20:20 06/09/19 20:20 06/09/19 20:20 06/09/19 20:20 06/09/19 20:20 Course - Vital Signs Vital signs: Temp Pulse Resp BP Pulse Ox 98.0 F 96 16 115/59 L 96 06/09/19 20:20 06/09/19 20:20 06/09/19 20:20 06/09/19 20:20 06/09/19 20:20
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
[2019-06-09 21:14] LABS: ABSOLUTE EOSINOPHILS # (AUTO) 0.4 10^3/uL (0.0-0.6); ABSOLUTE LYMPHOCYTES (AUTO) 1.8 10^3/uL (0.5-4.7); ABSOLUTE MONOCYTES (AUTO) 0.8 10^3/uL (0.1-1.4); ABSOLUTE NEUT (AUTO) 3.7 10^3/uL (1.7-8.2); BASOPHILS % (AUTO) 0.7 % (0-2); EOSINOPHILS % (AUTO) 5.2 % (0-6); HEMOGLOBIN 14.3 g/dL (13.5-17.0); LYMPHOCYTES % (AUTO) 26.6 % (13-45); MEAN CORPUSCULAR HEMOGLOBIN 30.2 pg (27.0-33.4); MEAN CORPUSCULAR HGB CONC 34.1 g/dL (32.0-36.0); MEAN CORPUSCULAR VOLUME 89 fl (80-97); MONOCYTES % (AUTO) 12.5 % (3-13); PLATELET COUNT 214 10^3/uL (150-450); RED BLOOD COUNT 4.74 10^6/uL (4.35-5.55); RED CELL DISTRIBUTION WIDTH 13.7 % (11.5-14.0); TOTAL CELLS COUNTED % (AUTO) 100 %; WHITE BLOOD COUNT 6.8 10^3/uL (4.0-10.5)
[2019-06-09 21:16] LABS: APPEARANCE,URINE CLEAR; BILIRUBIN,URINE NEGATIVE (NEGATIVE); COLOR,URINE YELLOW; GLUCOSE, URINE NEGATIVE (NEGATIVE); KETONES,URINE NEGATIVE (NEGATIVE); LEUKOCYTE ESTERASE,URINE NEGATIVE (NEGATIVE); NITRITE,URINE NEGATIVE (NEGATIVE); PROTEIN,URINE NEGATIVE (NEGATIVE); URINE SPECIFIC GRAVITY 1.027; UROBILINOGEN,URINE NEGATIVE mg/dL (<2.0)
[2019-06-09 21:28] LABS: ALBUMIN 4.3 g/dL (3.5-5.0); ALKALINE PHOSPHATASE 78 U/L (38-126); ANION GAP 9 (5-19); ASPARTATE AMINO TRANSFERASE 35 U/L (17-59); BILIRUBIN,DIRECT 0.1 mg/dL (0.0-0.4); BILIRUBIN,TOTAL 0.6 mg/dL (0.2-1.3); BLOOD UREA NITROGEN 15 mg/dL (7-20); CALCIUM 9.4 mg/dL (8.4-10.2); CARBON DIOXIDE 27 mmol/L (22-30); CHLORIDE 104 mmol/L (98-107); GLUCOSE 97 mg/dL (75-110); POTASSIUM 4.2 mmol/L (3.6-5.0); TOTAL PROTEIN 7.6 g/dL (6.3-8.2)
[2019-06-09 21:35] LABS: URINE AMPHETAMINES SCREEN NEGATIVE; URINE BARBITURATES SCREEN NEGATIVE; URINE BENZODIAZEPINES SCREEN NEGATIVE; URINE COCAINE SCREEN NEGATIVE; URINE MARIJUANA (THC) SCREEN NEGATIVE; URINE METHADONE SCREEN NEGATIVE; URINE PHENCYCLIDINE SCREEN NEGATIVE
[2019-06-09 21:36] LABS: ACETAMINOPHEN < 10 ug/mL (10-30); ALCOHOL < 10 mg/dL (NONE DETECTED); SALICYLATE < 1.0 mg/dL (2.0-20.0)
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
[2019-06-10 09:54] VITALS: BP 120/62
--- NOTE | 2019-06-10 14:20 | EKG REPORT ---
SEVERITY:- NORMAL ECG - SINUS RHYTHM : Confirmed by: Guicho Rodriguez 10-Jun-2019 14:19:52
== END 2019-06-10 09:50 | disposition home or self-care (01) ==
LOC: ER 20:12
DX: F20.9 Schizophrenia, unspecified (principal); F17.200 Nicotine dependence, unspecified, uncomplicated
CPT/HCPCS: 36415; 80053; 80307; 81001; 85025; 93005; 93010; 99284

== ENCOUNTER 2019-06-20 18:26 | Emergency (ER) | payer SELFPAY ==
[2019-06-20 18:44] VITALS: BP 133/82
== END 2019-06-20 20:36 | disposition left against medical advice (07) ==
LOC: ER 18:26
DX: Z53.21 Procedure and treatment not carried out due to patient leaving prior to being seen by health care provider (principal)